=== PATIENT | female | born 1965 ===

== ENCOUNTER 2019-09-08 11:27 | Emergency (ER) | payer BC ==
[~2019-09-08] VITALS: Ht 170.2 cm; Wt 67.7 kg
[2019-09-08 11:38] VITALS: TEMP 97.5
[2019-09-08 12:20] LABS: ALANINE AMINOTRANSFERASE 26 U/L (4-34); ALBUMIN 4.7 gm/dL (3.5-5.0); ALKALINE PHOSPHATASE 108 U/L (50-136); ANION GAP 7 mmol/L (7-16); AST,SGOT 39 U/L (15-37); BILIRUBIN,TOTAL 0.8 mg/dL (0.0-1.0); BLOOD UREA NITROGEN 13 mg/dL (7-17); CALCIUM 9.9 mg/dL (8.4-10.2); CARBON DIOXIDE 30 mmol/L (22-30); CHLORIDE 102 mmol/L (98-107); CREATININE, serum 0.78 (0.52-1.25); GLUCOSE 94 mg/dL (74-106); LIPASE 49 U/L (23-300); MAGNESIUM 2.2 mg/dL (1.6-2.3); POTASSIUM 3.9 mmol/L (3.4-5.0); SODIUM 139 mmol/L (137-145); TOTAL PROTEIN 8.3 gm/dL (6.4-8.2)
[2019-09-08 12:42] LABS: INR 0.9 (0.8-3.0); PROTHROMBIN TIME 10.4 SECONDS (9.7-12.8)
[2019-09-08 12:43] LABS: BASO # 0.1 (0.0-0.2); BASO % 0.8 % (0.0-2.0); EOS # 0.1 (0.0-0.7); EOS % 1.7 % (0-4.0); GRAN # 4.2 (1.4-6.5); GRAN % 59.1 % (42.2-75.2); HEMATOCRIT 40.4 % (37.0-47.0); LYMPH # 2.3 (1.2-3.4); MEAN CELL VOLUME 90 fl (80.0-100.0); MEAN CORPUSCULAR HEMOGLOBIN 29 pg (27.0-31.0); MEAN CORPUSCULAR HGB CONC 32 g/dl (33.0-37.0); MEAN PLATELET VOLUME 9.5 fl (7.4-10.4); MONO # 0.4 (0.1-0.6); MONO % 6.1 % (1.7-9.3); PLATELET COUNT 284 K/mm3 (130-400); RED BLOOD COUNT 4.51 M/mm3 (4.10-5.30); REDCELL DISTRIBUTION WIDTH-CV 13.3 % (11.5-14.5)
[2019-09-08 12:44] LABS: TROPONIN-I < 0.012 ng/mL (0.000-0.035)
[2019-09-08 12:45] LABS: PARTIAL THROMBOPLASTIN TIME 36.3 SECONDS (26.0-37.0)
[2019-09-08 13:01] LABS: D-DIMER < 200.00 ng/mLDDu (200-230)
[2019-09-08] MEDS ORDERED: NITROSTAT0.4 MG/TAB SL (14:44)
[2019-09-08 15:05] VITALS: BP 124/89; PULSE 71
== END 2019-09-08 15:20 | disposition home or self-care (01) ==
LOC: COL.ER 11:27
PROVIDERS: Emergency Medicine
DX: R07.89 Other chest pain (principal)
CPT/HCPCS: J7030